=== PATIENT | male | born 1980 | race Caucasian/White ===

== ENCOUNTER 2016-08-28 06:42 | Emergency (ER) | payer BC ==
[2016-08-28] MEDS ORDERED: EPINEPHrine 1:1000 1 MG/ML SDV SUBCUT ONE (07:24)
[2016-08-28] MEDS ORDERED: methylPREDNISolone Sodium Succinate 125 MG/2 ML SDV IVPUSH ONE (07:25)
--- NOTE | 2016-08-28 08:37 | EDM.PDOC ---
ED HPI GENERAL MEDICAL PROBLEM - General Chief Complaint: Respiratory Problem Stated Complaint: SORE THROAT Time Seen by Provider: 08/28/16 07:08 Source of Information: Reports: Patient, RN Notes Reviewed History Limitations: Reports: No Limitations - History of Present Illness INITIAL COMMENTS - FREE TEXT/NARRATIVE: The patient states that he was woken around 06:00 this morning with a sore throat and difficulty swallowing. He states that his sore throat is similar to when he has had strep throat in the past. He denies having a pruritus or a rash. He states that he is allergic to sagebrush, and that he was visiting [place] over the past 3 days, just getting home yesterday, and that while in [place], he was exposed to sagebrush. He also reports, however, that he drank heavily last night. He states that he took 2 rdmn-gml-wkielqy Benadryl tablets around 06:10 this morning, and that it may be beginning to help. He reports that he had a single episode of emesis here in the ED that he believes is secondary to the alcohol that he drank last night. Throat Pain Score (Numeric/FACES): 5 - Related Data Allergies Allergy/AdvReac Type Severity Reaction Status Date / Time No Known Allergies Allergy Verified 04/14/15 01:37 [employer] Home Meds: Home Meds Lisinopril/Hydrochlorothiazide [Lisinopril-Hctz 10-12.5 mg Tab] 1 tab PO DAILY 04/14/15 [History] Omeprazole 40 mg PO DAILY 04/14/15 [History] atorvaSTATin Calcium [Atorvastatin Calcium] 40 mg PO DAILY 04/14/15 [History] Allopurinol [Zyloprim] 300 mg PO DAILY 08/28/16 [History] Past Medical History HEENT History: Reports: Allergic Rhinitis Cardiovascular History: Reports: High Cholesterol, Hypertension Respiratory History: Reports: Sleep Apnea (diagnosed, but untreated) Gastrointestinal History: Reports: GERD Musculoskeletal History: Reports: Fracture, Gout (Suspected, not confirmed) Psychiatric History: Reports: Anxiety, PTSD Endocrine/Metabolic History: Reports: Obesity/BMI 30+ - Infectious Disease History Infectious Disease History: Reports: Chicken Pox - Past Surgical History Musculoskeletal Surgical History: Reports: Other (See Below) (Right ankle repair. 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) ED ROS GENERAL - Review of Systems Review Of Systems: See Below Constitutional: Reports: No Symptoms HEENT: Reports: No Symptoms Respiratory: Reports: No Symptoms Cardiovascular: Reports: No Symptoms Endocrine: Reports: No Symptoms GI/Abdominal: Reports: No Symptoms : Reports: No Symptoms Musculoskeletal: Reports: No Symptoms Skin: Reports: No Symptoms Neurological: Reports: No Symptoms Psychiatric: Reports: No Symptoms Hematologic/Lymphatic: Reports: No Symptoms Immunologic: Reports: No Symptoms ED EXAM, GENERAL - Physical Exam Exam: See Below Exam Limited By: No Limitations General Appearance: Alert, WD/WN, No Apparent Distress Eye Exam: Bilateral Eye: Normal Inspection Ears: Normal External Exam, Normal Canal, Hearing Grossly Normal, Normal TMs Ear Exam: Bilateral Ear: Auricle Normal, Canal Normal, TM normal Nose: Normal Inspection, Normal Mucosa, No Blood Throat/Mouth: Normal Inspection, Normal Lips, Normal Teeth, Normal Gums, Normal Voice, No Airway Compromise, Other (Significant uvular edema. Tonsils normal. No oropharyngeal erythema. Mallampati class IV.) Head: Atraumatic, Normocephalic Neck: Normal Inspection, Supple, Non-Tender, Full Range of Motion. No: Lymphadenopathy (L), Lymphadenopathy (R) Respiratory/Chest: No Respiratory Distress, Lungs Clear, Normal Breath Sounds, No Accessory Muscle Use. No: Wheezing Cardiovascular: Normal Peripheral Pulses, Regular Rate, Rhythm, No Gallop, No JVD, No Murmur, No Rub Peripheral Pulses: 4+: Radial (L), Radial (R) GI/Abdominal: Normal Bowel Sounds, Soft, Non-Tender, No Organomegaly, No Distention, No Abnormal Bruit, No Mass, Other (Obese) (Male) Exam: Deferred Rectal (Males) Exam: Deferred Back Exam: Normal Inspection, Full Range of Motion, NT Extremities: Normal Inspection, Normal Range of Motion, Normal Capillary Refill Neurological: Alert, Oriented, Normal Cognition, No Motor/Sensory Deficits Psychiatric: Normal Affect Skin Exam: Warm, Dry, Intact, Normal Color, No Rash Course - Vital Signs Last Recorded V/S: Last Vital Signs Temp 37.3 C 08/28/16 06:49 Pulse 103 H 08/28/16 09:42 Resp 18 08/28/16 09:42 BP 137/97 H 08/28/16 09:42 Pulse Ox 99 08/28/16 09:42 - Orders/Labs/Meds Orders: Active Orders 24 hr Category Date Time Status CULTURE STREP A CONFIRMATION [] Stat Lab 08/28/16 07:18 Results STREP SCRN A RAPID W CULT CONF [RM] Stat Lab 08/28/16 07:18 Results Meds: Medications Discontinued Medications Generic Name Dose Route Start Last Admin Trade Name Vishal PRN Reason Stop Dose Admin Epinephrine HCl 0.3 mg 08/28/16 07:24 08/28/16 07:37 Adrenalin 1:1000 SUBCUT 08/28/16 07:25 0.3 mg ONETIME ONE Administration Methylprednisolone Sodium Succinate 125 mg 08/28/16 07:25 08/28/16 07:37 Solu-Medrol IVPUSH 08/28/16 07:26 125 mg ONETIME ONE Administration - Re-Assessments/Exams Free Text/Narrative Re-Assessment/Exam: 08/28/16 08:36 As uvular swelling is the only manifestation that the patient is experiencing ( no angioedema, urticaria, or pruritus), I suspect that this is NOT an allergic reaction, rather, given his known history of obstructive sleep apnea, untreated , I suspect that he has undiagnosed obstructive sleep apnea and was snoring last night secondary to excess alcohol intoxication, and that the elevated posterior oropharyngeal pressures caused the uvular swelling. The patient states that he has a CPAP machine, but that he does not use it. The patient was reexamined. There is slight improvement in the uvular edema following sucking on ice chips, subcutaneous epinephrine and IV Solu-Medrol. I' m recommending that we continue to observe the patient in the ED to confirm reduction and uvular swelling prior to discharge. 08/28/16 09:47 The patient was reexamined. There is significant improvement in his uvular edema. I believe we can safely discharge him home. I discussed the consequences of untreated obstructive sleep apnea, and I am recommending that he start using his CPAP machine. Departure - Departure Time of Disposition: 09:49 Disposition: Home, Self-Care 01 Condition: Good Clinical Impression: Uvular edema, Obstructive sleep apnea - Discharge Information Referrals: Luciana Knight DO [Primary Care Provider] - Forms: ED Department Discharge Additional Instructions: You were seen in the emergency room for swelling in your throat, and a sore throat. Workup in the ER included a strep test, which returned negative. On examination, we found that your uvula was significantly swollen, but no other findings consistent with an allergic reaction, such as swelling of your lips or face. It is MOST LIKELY that your uvular swelling is the result of snoring after excessive drinking last night and not using your CPAP machine for your obstructive sleep apnea. Your uvular swelling improved during your ER visit. We STRONGLY recommend that you begin using your CPAP machine nightly. There are numerous complications if you do not treat your obstructive sleep apnea. Follow-up with your PCP at the [facility], as needed. If any other problems, please do not hesitate to return to the ER. - My Orders Last 24 Hours: My Active Orders 08/28/16 07:18 CULTURE STREP A CONFIRMATION [RM] Stat STREP SCRN A RAPID W CULT CONF [RM] Stat - Assessment/Plan Last 24 Hours: My Active Orders 08/28/16 07:18 CULTURE STREP A CONFIRMATION [RM] Stat STREP SCRN A RAPID W CULT CONF [RM] Stat
[2016-08-28 09:43] VITALS: BP 137/97
== END 2016-08-28 10:00 | disposition home or self-care (01) ==
LOC: JD.ED 06:42
DX: G47.33 Obstructive sleep apnea (adult) (pediatric) (principal); R60.9 Edema, unspecified; I10 Essential (primary) hypertension; E78.00 Pure hypercholesterolemia, unspecified; F41.9 Anxiety disorder, unspecified; K21.9 Gastro-esophageal reflux disease without esophagitis; E66.9 Obesity, unspecified; Z68.42 Body mass index [BMI] 45.0-49.9, adult; Z79.899 Other long term (current) drug therapy; Z98.890 Other specified postprocedural states
CPT/HCPCS: 87081; 87430; 96372; 96374; 99283; J0171; J2930; 99284

== ENCOUNTER 2017-05-10 22:03 | Emergency (ER) | payer BC ==
[2017-05-10 22:13] VITALS: BP 162/98
--- NOTE | 2017-05-10 22:18 | EDM.PDOC ---
ED HPI GENERAL MEDICAL PROBLEM - General Chief Complaint: Chest Pain Stated Complaint: chest pain Time Seen by Provider: 05/10/17 22:09 Source of Information: Reports: Patient History Limitations: Reports: No Limitations - History of Present Illness INITIAL COMMENTS - FREE TEXT/NARRATIVE: The patient states that he developed a "bubbly, fuzzy" sensation retrosternally around 20:30 tonight. The sensation was continuous, but changed to a tightness and sharp pain with deep breaths around 21:50. The pain radiated to his back. He has not identified any modifiers. It was associated with a sense of impending doom, and he had nausea en route to the ED, but denies having any dyspnea or diaphoresis. The patient states that he has had similar symptoms doesn't's of times since approximately 2006. He has had medical evaluations that included a stress test, all of which were negative. The patient states that his symptoms are the same as when he has GERD, however, he states that he takes omeprazole for GERD, therefore he does not think that it is GERD. He states that he has been walking to lose weight, recently. The patient's PCP is Dr. Knight at the [facility]. Chest Pain Score (Numeric/FACES): 4 - Related Data Allergies Allergy/AdvReac Type Severity Reaction Status Date / Time Penicillins Allergy Rash Verified 05/10/17 22:08 Home Meds: Home Meds Allopurinol [Zyloprim] 300 mg PO DAILY 08/28/16 [History] Cetirizine [ZyrTEC] 10 mg PO DAILY 05/10/17 [History] Fluticasone Propionate [Flonase] 2 spray NASBOTH DAILY 05/10/17 [History] Pantoprazole Sodium [Protonix] 1 tab PO QAM #14 tablet. 05/11/17 [Rx] Past Medical History HEENT History: Reports: Allergic Rhinitis Cardiovascular History: Reports: High Cholesterol, Hypertension Respiratory History: Reports: Sleep Apnea (untreated) Gastrointestinal History: Reports: GERD Musculoskeletal History: Reports: Fracture, Gout (suspected, not diagnosed) Psychiatric History: Reports: Anxiety, PTSD Endocrine/Metabolic History: Reports: Obesity/BMI 30+ - Infectious Disease History Infectious Disease History: Reports: Chicken Pox - Past Surgical History Musculoskeletal Surgical History: Reports: Other (See Below) (Right ankle repair. 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 ED EXAM, GENERAL - Physical Exam Exam: See Below Exam Limited By: No Limitations General Appearance: Alert, WD/WN, No Apparent Distress Eye Exam: Bilateral Eye: Normal Inspection Ears: Normal External Exam, Hearing Grossly Normal Nose: Normal Inspection, No Blood Throat/Mouth: Normal Inspection, Normal Lips, Normal Voice, No Airway Compromise Head: Atraumatic, Normocephalic Neck: Normal Inspection, Full Range of Motion Respiratory/Chest: No Respiratory Distress, Lungs Clear, Normal Breath Sounds, No Accessory Muscle Use, Chest Non-Tender Cardiovascular: Normal Peripheral Pulses, Regular Rate, Rhythm, No Gallop, No JVD, No Murmur, No Rub Peripheral Pulses: 4+: Radial (L), Radial (R) GI/Abdominal: Normal Bowel Sounds, Soft, Non-Tender, No Organomegaly, No Distention, No Abnormal Bruit, No Mass, Other (Obese) (Male) Exam: Deferred Rectal (Males) Exam: Deferred Back Exam: Normal Inspection, Full Range of Motion, NT Extremities: Normal Range of Motion, No Pedal Edema, Normal Capillary Refill, Other (Small effusion to the left knee, but with no associated erythema or calor ) Neurological: Alert, Oriented, Normal Cognition, No Motor/Sensory Deficits Psychiatric: Normal Affect Skin Exam: Warm, Dry, Intact, Normal Color, No Rash EKG INTERPRETATION EKG Date: 05/10/17 Time: 22:13 Rhythm: NSR Rate (Beats/Min): 82 [place]: Normal P-Wave: Present QRS: Normal ST-T: Normal QT: Normal Comparison: NA - No Prior EKG Course - Vital Signs Last Recorded V/S: Last Vital Signs Temp 36.7 C 05/10/17 22:10 Pulse 90 05/10/17 22:10 Resp BP 162/98 H 05/10/17 22:10 Pulse Ox 98 05/10/17 22:10 - Orders/Labs/Meds Orders: Active Orders 24 hr Category Date Time Status Chest 2V [CR] Stat Exams 05/10/17 22:28 Taken EKG 12 Lead [EK] Stat Ther 05/10/17 22:10 Ordered Labs: Laboratory Tests 05/10/17 05/10/17 05/10/17 Range/Units 22:45 22:45 22:45 WBC 13.37 H (4.23-9.07) K/mm3 RBC 4.96 (4.63-6.08) M/mm3 Hgb 15.8 (13.7-17.5) gm/L Hct 46.0 (40.1-51.0) % MCV 92.7 H (79.0-92.2) fl MCH 31.9 (25.7-32.2) pg MCHC 34.3 (32.2-35.5) g/dl RDW Std Deviation 48.4 H (35.1-43.9) fL Plt Count 257 (163-337) K/mm3 MPV 9.3 L (9.4-12.3) fl Neutrophils % (Manual) 65 H (40-60) % Band Neutrophils % 0 (0-10) % Lymphocytes % (Manual) 23 (20-40) % Atypical Lymphs % 2 % Monocytes % (Manual) 6 (2-10) % Eosinophils % (Manual) 1 (0.8-7.0) % Basophils % (Manual) 0 L (0.2-1.2) Metamyelocytes % 1 Myelocytes % 1 Promyelocytes % 1 Platelet Estimate Adequate Plt Morphology Comment Normal RBC Morph Comment Normal PT 10.5 (8.0-13.0) SECONDS INR 0.98 APTT 25 (22-36) SECONDS D-Dimer, Quantitative < 0.19 L (0.19-0.59) mg/L Sodium 140 (136-145) mEq/L Potassium 4.0 (3.5-5.1) mEq/L Chloride 102 (98-107) mEq/L Carbon Dioxide 23 (21-32) mEq/L Anion Gap 19.0 H (5-15) BUN 18 (7-18) mg/dL Creatinine 1.2 (0.7-1.3) mg/dL Est Cr Clr Drug Dosing 84.28 mL/min Estimated GFR (MDRD) > 60 (>60) mL/min BUN/Creatinine Ratio 15.0 (14-18) Glucose 116 H (74-106) mg/dL Calcium 9.2 (8.5-10.1) mg/dL Total Bilirubin 0.4 (0.2-1.0) mg/dL AST 30 (15-37) U/L ALT 61 (16-63) U/L Alkaline Phosphatase 42 L (46-116) U/L Troponin I < 0.017 (0.00-0.056) ng/mL Total Protein 7.5 (6.4-8.2) g/dl Albumin 3.6 (3.4-5.0) g/dl Globulin 3.9 gm/dL Albumin/Globulin Ratio 0.9 L (1-2) Meds: Medications Discontinued Medications Generic Name Dose Route Start Last Admin Trade Name Freq PRN Reason Stop Dose Admin Al Hydroxide/Mg Hydroxide 30 0 ml 05/10/17 22:28 05/10/17 22:35 ml/ Lidocaine HCl 15 ml PO 05/10/17 22:29 45 ml ONETIME STA Administration Pantoprazole Sodium 40 mg 05/10/17 23:53 05/11/17 00:02 Protonix PO 05/10/17 23:54 40 mg ONETIME STA Administration - Re-Assessments/Exams Free Text/Narrative Re-Assessment/Exam: 05/10/17 23:02 The patient reports significant improvement in his chest pain following a GI cocktail. 05/10/17 23:16 Two-view chest radiograph appears to be grossly normal. Cardiac silhouette is within normal limits. No pulmonary vascular congestion. No pleural effusions. No focal infiltrate. No pneumothorax. Formal read per the Radiologist pending. 05/11/17 00:03 The patient asked me to look at his left knee. He states that he has been having some pain in it for a few days, and that it is all swollen. On examination, there is a small effusion, but no associated warmth or erythema. He has no inflammation or pain to his great toes. He has a presumptive diagnosis of gout, but has never been formally tested. I'm recommending that he take uqev-pyi-pmgerch ibuprofen, then follow-up with Dr. Cabezas, who could aspirate the knee for a formal diagnosis. With respect to the patient's chest pain, tonight's workup is unremarkable. The patient is likely suffering from GERD. The omeprazole that he has been taking his likely stopped working. I have started the patient on oral Protonix, and will prescribe a 2 week course. I will also refer the patient to Dr. Jaimes, to arrange for an EGD. Departure - Departure Time of Disposition: 00:05 Disposition: Home, Self-Care 01 Condition: Good Clinical Impression: GERD (gastroesophageal reflux disease), Monoarthritis of left knee - Discharge Information Prescriptions: Pantoprazole Sodium [Protonix] 1 tab PO QAM #14 tablet.dr Instructions: Food Choices for Gastroesophageal Reflux Disease, Adult, Easy-to- Read, Arthritis, [id number] Referrals: Luciana Knight DO [Primary Care Provider] - Monty Jaimes MD [Physician] - Seth Cabezas MD [Physician] - Forms: ED Department Discharge Additional Instructions: You were seen in the emergency room for chest pain and left knee pain. Workup in the ER included blood work, an ECG, and a chest x-ray. Your entire workup was unremarkable. You have not suffered a heart attack. You do not have a blood clot in your chest. You do not have a popped lung. Your chest pain resolved following a GI cocktail, indicating that your chest pain is due to GERD. It is MOST LIKELY that the omeprazole that you have been taking has stopped working. You have been started on the antacid medicine Protonix. Take one tablet every day, as prescribed. We recommend that you follow-up with the Surgeon Dr. Monty Jaimes, to arrange for an EGD (scope of the stomach). Your left knee pain may or may not be due to gout. We recommend that you take aazi-ijj-acncftt ibuprofen, 2-3 tablets (400-600 mg) , with food, every 8 hours, as needed for knee pain. We recommend that you follow-up with the Orthopedic Surgeon Dr. Cabezas within the next day or two, for further evaluation of your knee. If any other problems, please do not hesitate to return to the ER. - My Orders Last 24 Hours: My Active Orders 05/10/17 22:10 EKG 12 Lead [EK] Stat 05/10/17 22:28 Chest 2V [CR] Stat - Assessment/Plan Last 24 Hours: My Active Orders 05/10/17 22:10 EKG 12 Lead [EK] Stat 05/10/17 22:28 Chest 2V [CR] Stat
[2017-05-10] MEDS ORDERED: Alum Hydrox/Mag Hydrox/Simeth 30 ML, Lidocaine 2% 15 ML PO STA ×2 (22:28)
[2017-05-10] MEDS ORDERED: Pantoprazole 40 MG Tab.CR PO STA (23:53)
--- NOTE | 2017-05-11 07:05 | CR ---
Chest: Two views of the chest were obtained. Comparison: No prior study. Heart size and mediastinum are normal. Lungs are clear. Bony structures are unremarkable. Impression: 1. Nothing acute is identified on two-view chest x-ray. Diagnostic code #1
== END 2017-05-11 00:25 | disposition home or self-care (01) ==
LOC: JD.ED 22:03
DX: K21.9 Gastro-esophageal reflux disease without esophagitis (principal); M17.12 Unilateral primary osteoarthritis, left knee; I10 Essential (primary) hypertension; E66.9 Obesity, unspecified; Z88.0 Allergy status to penicillin; Z79.899 Other long term (current) drug therapy
CPT/HCPCS: 36415; 71046; 80053; 84484; 85025; 85379; 85610; 85730; 99285; A9270; 93010; 99284-25

== ENCOUNTER 2017-08-25 23:51 | Emergency (ER) | payer BC ==
[2017-08-26 00:06] VITALS: BP 148/93
[2017-08-26] MEDS ORDERED: Orphenadrine 100 MG Tab.ER PO STA (01:28)
--- NOTE | 2017-08-26 01:34 | EDM.PDOC ---
ED HPI GENERAL MEDICAL PROBLEM - General Chief Complaint: General Stated Complaint: LEFT SIDE PAIN Time Seen by Provider: 08/26/17 01:17 Source of Information: Reports: Patient History Limitations: Reports: No Limitations - History of Present Illness INITIAL COMMENTS - FREE TEXT/NARRATIVE: The patient states that he was golfing around 14:00 this afternoon, and swung very hard when teeing off. He states that he had immediate pain to the inferior aspect of his left ribs. He was unable to continue golfing, due to the pain. He states that the pain is only if he moves, and was improving, until he sneezed, which significantly increased the pain, prompting him to come to the ED. He states that he has had nausea associated with the pain, although no emesis. He denies associated dyspnea, chest pain, palpitations, or abdominal pain. No prior similar symptoms. The patient's PCP is Dr. Knight at the [place]. Left Flank Pain Score (Numeric/FACES): 8 - Related Data Allergies Allergy/AdvReac Type Severity Reaction Status Date / Time Penicillins Allergy Rash Verified 08/26/17 00:06 Home Meds: Home Meds Allopurinol [Zyloprim] 300 mg PO DAILY 08/28/16 [History] Cetirizine [ZyrTEC] 10 mg PO DAILY 05/10/17 [History] Fluticasone Propionate [Flonase] 2 spray NASBOTH DAILY 05/10/17 [History] Pantoprazole Sodium [Protonix] 1 tab PO QAM #14 tablet. 05/11/17 [Rx] Lisinopril/Hydrochlorothiazide [Lisinopril-Hctz 10-12.5 mg Tab] 10 mg PO DAILY 08/26/17 [History] Orphenadrine [Norflex] 1 tab PO Q12H PRN #14 tab.er 08/26/17 [Rx] Past Medical History HEENT History: Reports: Allergic Rhinitis Cardiovascular History: Reports: High Cholesterol, Hypertension Respiratory History: Reports: Sleep Apnea (nightly CPAP, auto setting) Gastrointestinal History: Reports: GERD Musculoskeletal History: Reports: Fracture (2 fingers), Gout (aspiration- confirmed) Psychiatric History: Reports: Anxiety, PTSD Endocrine/Metabolic History: Reports: Obesity/BMI 30+ - Infectious Disease History Infectious Disease History: Reports: Chicken Pox - Past Surgical History Musculoskeletal Surgical History: Reports: Other (See Below) (Left wrist repair. 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 ED EXAM, GENERAL - Physical Exam Exam: See Below Exam Limited By: No Limitations General Appearance: Alert, WD/WN, No Apparent Distress GI/Abdominal: Normal Bowel Sounds, Soft, No Abnormal Bruit, No Mass, Other ( Obese abdomen. Reproducible tenderness to palpation to the inferior margin of the left ribs, midaxillary line. No visible abnormality, such as erythema, ecchymosis, or abrasion. No rub on auscultation.) Course - Vital Signs Last Recorded V/S: Last Vital Signs Temp 37.2 C 08/26/17 00:02 Pulse 110 H 08/26/17 00:02 Resp 20 08/26/17 00:02 BP 148/93 H 08/26/17 00:02 Pulse Ox 99 08/26/17 00:02 - Orders/Labs/Meds Labs: Laboratory Tests 08/26/17 Range/Units 00:19 Urine Color Yellow (Yellow) Urine Appearance Clear (Clear) Urine pH 6.0 (5.0-8.0) Ur Specific [place] > or = 1.030 (1.005-1.030) Urine Protein Negative (Negative) Urine Glucose (UA) Negative (Negative) Urine Ketones Trace H (Negative) Urine Occult Blood Negative (Negative) Urine Nitrite Negative (Negative) Urine Bilirubin Negative (Negative) Urine Urobilinogen 0.2 (0.2-1.0) Ur Leukocyte Esterase Negative (Negative) Urine RBC 0-5 (0-5) /hpf Urine WBC Not seen (0-5) /hpf Ur Epithelial Cells Not seen (0-5) /hpf Ur Squamous Epith Cells Not seen (0-5) /hpf Urine Bacteria Not seen (FEW) /hpf Urine Mucus Not seen (FEW) /hpf Meds: Medications Discontinued Medications Generic Name Dose Route Start Last Admin Trade Name Vishal PRN Reason Stop Dose Admin Orphenadrine Citrate 100 mg 08/26/17 01:28 08/26/17 01:46 Norflex PO 08/26/17 01:29 100 mg ONETIME STA Administration - Re-Assessments/Exams Free Text/Narrative Re-Assessment/Exam: 08/26/17 01:30 A urinalysis is negative for microscopic blood, significantly reducing the likelihood that the patient's pain is due to a kidney stone. Additionally, the patient's pain is reproducible with palpation, and is only present whenever he moves. Based on his history and physical findings, he is most likely suffering from a muscle spasm. I will start him on Norflex, and recommend that he continue taking qmqg-[id number]-[id number] ibuprofen. Departure - Departure Time of Disposition: 01:31 Disposition: Home, Self-Care 01 Condition: Good Clinical Impression: Spasm of abdominal muscles of left side - Discharge Information Prescriptions: Orphenadrine [Norflex] 1 tab PO Q12H PRN #14 tab.er PRN Reason: Muscle Spasm Instructions: Muscle Cramps and Spasms Referrals: Luciana Knight DO [Primary Care Provider] - Forms: ED Department Discharge Additional Instructions: You were seen in the emergency room for severe left-sided pain after swinging a golf club hard this afternoon. Workup in the ER included a urinalysis, which was negative for blood, significantly reducing the likelihood that your symptoms are due to a kidney stone. Based on your history and physical examination, you are MOST LIKELY suffering from a muscle spasm. You have been started on the muscle relaxant Norflex. A prescription for Norflex has been sent to the [facility], located in the [facility] grocery store. Take one tablet every 12 hours, as prescribed. We recommend that you continue to take nxvc-lvs-kotctnl ibuprofen, 3-4 tablets ( 600-800 mg) every 8 hours, with food, as needed for pain. If your symptoms have not improved by next week, we recommend that you follow- up with your PCP, Dr. Knight, at the [place]. If any other problems, please do not hesitate to return to the ER.
== END 2017-08-26 01:48 | disposition home or self-care (01) ==
LOC: JD.ED 23:51
DX: M62.838 Other muscle spasm (principal); I10 Essential (primary) hypertension; E78.00 Pure hypercholesterolemia, unspecified; F41.9 Anxiety disorder, unspecified; Z79.899 Other long term (current) drug therapy; Z88.0 Allergy status to penicillin
CPT/HCPCS: 81001; 99284; A9270; 99283

== ENCOUNTER 2017-11-22 22:50 | Emergency (ER) | payer BC ==
[2017-11-22 23:01] VITALS: BP 164/97
--- NOTE | 2017-11-23 03:39 | EDM.PDOC ---
ED HPI GENERAL MEDICAL PROBLEM - General Chief Complaint: Chest Pain Stated Complaint: CHEST PAIN Time Seen by Provider: 11/23/17 03:17 Source of Information: Reports: Patient, RN Notes Reviewed History Limitations: Reports: No Limitations - History of Present Illness INITIAL COMMENTS - FREE TEXT/NARRATIVE: The patient states that he developed a sharp pain, felt just left of his sternum , around 22:30 this evening. It came on suddenly. He states that it radiates straight through to his left back. The patient reports that his pain has persisted, and is still present now. He denies any associated symptoms, such as nausea, dyspnea, diaphoresis, or sense of impending doom, however, he states that he is very anxious. The patient reports that his anxiety was previously treated with Ativan, but that it was discontinued 1.5 to 2 years ago, and not replaced with a long-term anxiolytic. The patient states that he has had recurrent chest pain for the past 6-8 months , but that it is different than his presenting pain. The patient's PCP is at the [facility]. Chest Pain Score (Numeric/FACES): 6 - Related Data Allergies Allergy/AdvReac Type Severity Reaction Status Date / Time Penicillins Allergy Rash Verified 11/22/17 23:02 Home Meds: Home Meds Allopurinol [Zyloprim] 300 mg PO DAILY 08/28/16 [History] Cetirizine [ZyrTEC] 10 mg PO DAILY 05/10/17 [History] Fluticasone Propionate [Flonase] 2 spray NASBOTH DAILY 05/10/17 [History] Pantoprazole Sodium [Protonix] 1 tab PO QAM #14 tablet. 05/11/17 [Rx] Lisinopril/Hydrochlorothiazide [Lisinopril-Hctz 10-12.5 mg Tab] 10 mg PO DAILY 08/26/17 [History] Orphenadrine [Norflex] 1 tab PO Q12H PRN #14 tab.er 08/26/17 [Rx] Past Medical History HEENT History: Reports: Allergic Rhinitis Cardiovascular History: Reports: High Cholesterol, Hypertension Respiratory History: Reports: Sleep Apnea (wears AutoPAP nightly) Gastrointestinal History: Reports: GERD Musculoskeletal History: Reports: Fracture (2 fingers), Gout (confirmed by aspiration) Psychiatric History: Reports: Anxiety (untreated), PTSD (untreated) Endocrine/Metabolic History: Reports: Obesity/BMI 30+ - Infectious Disease History Infectious Disease History: Reports: Chicken Pox - Past Surgical History Musculoskeletal Surgical History: Reports: Other (See Below) (Left wrist repair. 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 ED EXAM, GENERAL - Physical Exam Exam: See Below Exam Limited By: No Limitations General Appearance: Alert, WD/WN, No Apparent Distress Eye Exam: Bilateral Eye: EOMI, Normal Inspection Ears: Normal External Exam, Hearing Grossly Normal Nose: Normal Inspection Throat/Mouth: Normal Inspection, Normal Lips, Normal Teeth, Normal Gums, Normal Oropharynx, Normal Voice, No Airway Compromise Head: Atraumatic, Normocephalic Neck: Normal Inspection, Full Range of Motion Respiratory/Chest: No Respiratory Distress, Lungs Clear, Normal Breath Sounds, No Accessory Muscle Use, Other (Reproducible tenderness to palpation of the medial left pectoralis muscle. Pain is also reproduced when the patient contracts his pectoralis muscles against resistance, or if he crosses his left upper extremity across his chest.) Cardiovascular: Normal Peripheral Pulses, Regular Rate, Rhythm, No Gallop, No JVD, No Murmur, No Rub Peripheral Pulses: 4+: Radial (L), Radial (R) GI/Abdominal: Normal Bowel Sounds, Soft, Non-Tender, No Organomegaly, No Distention, No Abnormal Bruit, No Mass, Other (Obese) (Male) Exam: Deferred Rectal (Males) Exam: Deferred Back Exam: Normal Inspection, Full Range of Motion, Other (Reproducible tenderness to palpation along the medial aspect of the patient's left scapula). No: CVA Tenderness (L), CVA Tenderness (R) Extremities: Normal Inspection, Normal Range of Motion, No Pedal Edema, Normal Capillary Refill Neurological: Alert, Oriented, Normal Cognition, No Motor/Sensory Deficits Psychiatric: Normal Affect Skin Exam: Warm, Dry, Intact, Normal Color, No Rash EKG INTERPRETATION EKG Date: 11/23/17 Time: 12:20 Rhythm: NSR Rate (Beats/Min): 85 [place]: Normal P-Wave: Present QRS: Normal ST-T: Normal (No ischemic changes, but there is late transition, not seen on ECG 05/10/2017) QT: Normal Comparison: Change From Previous EKG (05/10/2017) Course - Vital Signs Last Recorded V/S: Last Vital Signs Temp 36.6 C 11/22/17 22:57 Pulse 88 11/22/17 22:57 Resp 31 H 11/22/17 22:57 BP 164/97 H 11/22/17 22:57 Pulse Ox 98 11/22/17 22:57 - Orders/Labs/Meds Labs: Laboratory Tests 11/22/17 11/22/17 Range/Units 23:20 23:20 WBC 8.97 (4.23-9.07) K/mm3 RBC 4.67 (4.63-6.08) M/mm3 Hgb 15.0 (13.7-17.5) gm/L Hct 42.9 (40.1-51.0) % MCV 91.9 (79.0-92.2) fl MCH 32.1 (25.7-32.2) pg MCHC 35.0 (32.2-35.5) g/dl RDW Std Deviation 45.7 H (35.1-43.9) fL Plt Count 254 (163-337) K/mm3 MPV 9.6 (9.4-12.3) fl Neut % (Auto) 58.6 (34.0-67.9) % Lymph % (Auto) 28.3 (21.8-53.1) % [place] % (Auto) 10.3 (5.3-12.2) % Eos % (Auto) 1.9 (0.8-7.0) Baso % (Auto) 0.2 (0.1-1.2) % Neut # (Auto) 5.26 (1.78-5.38) K/mm3 Lymph # (Auto) 2.54 (1.32-3.57) K/mm3 [place] # (Auto) 0.92 H (0.30-0.82) K/mm3 Eos # (Auto) 0.17 (0.04-0.54) K/mm3 Baso # (Auto) 0.02 (0.01-0.08) K/mm3 Sodium 139 (136-145) mEq/L Potassium 3.7 (3.5-5.1) mEq/L Chloride 103 (98-107) mEq/L Carbon Dioxide 23 (21-32) mEq/L Anion Gap 16.7 H (5-15) BUN 16 (7-18) mg/dL Creatinine 1.1 (0.7-1.3) mg/dL Est Cr Clr Drug Dosing 88.09 mL/min Estimated GFR (MDRD) > 60 (>60) mL/min BUN/Creatinine Ratio 14.5 (14-18) Glucose 239 H (74-106) mg/dL Calcium 9.1 (8.5-10.1) mg/dL Total Bilirubin 0.3 (0.2-1.0) mg/dL AST (15-37) U/L ALT 83 H (16-63) U/L Alkaline Phosphatase 51 (46-116) U/L Troponin I < 0.017 (0.00-0.056) ng/mL C-Reactive Protein 1.0 (<1.0) mg/dL Total Protein 7.3 (6.4-8.2) g/dl Albumin 3.5 (3.4-5.0) g/dl Globulin 3.8 gm/dL Albumin/Globulin Ratio 0.9 L (1-2) - Re-Assessments/Exams Free Text/Narrative Re-Assessment/Exam: 11/23/17 03:38 The patient's left anterior chest pain is discrete and reproducible with both palpation as well as flexion of his left pectoralis muscle. His left scapular pain is reproducible with palpation over a discrete area. Both of these are consistent with the patient's pain being due to a muscle spasm, however, I want to be certain that it is not due to a pneumothorax, therefore I have ordered a chest x-ray. 11/23/17 04:23 2-view chest radiograph appears to be grossly normal. Cardiac silhouette is within normal limits. No pulmonary vascular congestion. No pleural effusions. No focal infiltrate. No pneumothorax. Formal read per the Radiologist pending. 11/23/17 04:26 Test results discussed with the patient. As above, the patient's chest pain appears to be due to muscle spasms, possibly related to his untreated anxiety. We discussed the option of prescribing a muscle relaxant, but he elected against it. The patient states that he is getting the run-around at the [facility], and that they changed physicians on him. I had recommended that he have an EGD to evaluate his acid reflux months ago, and he states that he still hasn't had it. The patient had previously been on lorazepam for anxiety, which was discontinued about 2 years ago, and not replaced with an SSRI. He has regular insurance, however, and therefore agreed to be referred to a PCP at this facility who may be able to expedite his evaluation. I will refer him to Lacie Walton. Departure - Departure Time of Disposition: 04:28 Disposition: Home, Self-Care 01 Condition: Good Clinical Impression: Musculoskeletal chest pain - Discharge Information *PRESCRIPTION DRUG MONITORING PROGRAM REVIEWED*: Not Applicable *COPY OF PRESCRIPTION DRUG MONITORING REPORT IN PATIENT BRADLEY: Not Applicable Instructions: Nonspecific Chest Pain, [id number] Referrals: PCP,Mable [Primary Care Provider] - Lacie Walton PA [Physician Wool Sampler] - Forms: ED Department Discharge Additional Instructions: You were seen in the emergency room for sharp front and back chest pain. Workup in the ER included blood work, chest x-ray, and an ECG. Your entire workup was unremarkable. Based on your history, physical examination, and workup, your chest pain is MOST LIKELY due to muscle spasms, possibly related to your untreated anxiety. Follow-up with Fahad Walton as a primary care provider. She can arrange for you to get an EGD, and you can discuss treatment options for anxiety. If any other problems, please do not hesitate to return to the ER.
--- NOTE | 2017-11-23 07:45 | CR ---
Chest: Two views of the chest were obtained. Comparison: Prior chest x-ray of 05/10/17. Heart size and mediastinum are normal. Lung markings are slightly increased believed to be accentuated from patient body habitus. Lungs are felt to be clear. No acute parenchymal change is suspected. Bony structures are unremarkable. Impression: 1. Nothing acute is seen on two-view chest x-ray. Diagnostic code #2
== END 2017-11-23 04:40 | disposition home or self-care (01) ==
LOC: JD.ED 22:50
DX: R07.89 Other chest pain (principal); I10 Essential (primary) hypertension; E78.00 Pure hypercholesterolemia, unspecified; F41.9 Anxiety disorder, unspecified; Z79.899 Other long term (current) drug therapy; Z88.0 Allergy status to penicillin
CPT/HCPCS: 36415; 71046; 71046-26; 80053; 84484; 85025; 86140; 93005; 93010; 99284-25; 99285-25

== ENCOUNTER 2018-11-13 08:53 | Emergency (ER) | payer OTHER, BC ==
[2018-11-13 09:05] VITALS: BP 158/98
[2018-11-13] MEDS ORDERED: Sodium Chloride 0.9% 10 ML Syringe FLUSH PRN (09:32)
--- NOTE | 2018-11-13 09:47 | EDM.PDOC ---
ED HPI GENERAL MEDICAL PROBLEM - General Chief Complaint: Abdominal Pain Stated Complaint: LEFT SIDE STOMACH PAIN Time Seen by Provider: 11/13/18 09:23 Source of Information: Reports: Patient History Limitations: Reports: No Limitations - History of Present Illness INITIAL COMMENTS - FREE TEXT/NARRATIVE: The patient presents with left sided abdominal and flank pain. This started yesterday but became more intense today. He said he did urinate and that did relieve some of his pain. He has no history of kidney stones. He has no dysuria or hematuria. He has no chest pain or shortness of breath. He had some nausea this morning and that is gone. He still has his gallbladder and appendix. Onset: Gradual Duration: Day(s): (Yesterday) Location: Reports: Abdomen Quality: Reports: Sharp Severity: Moderate Improves with: Reports: None Worsens with: Reports: None Associated Symptoms: Reports: Nausea/Vomiting. Denies: Chest Pain, Cough, Fever /Chills, Headaches, Shortness of Breath Left Lower Abdominal Pain Score (Numeric/FACES): 8 - Related Data Allergies Allergy/AdvReac Type Severity Reaction Status Date / Time lisinopril Allergy Cough Verified 11/13/18 09:06 meloxicam Allergy Dizziness Verified 11/13/18 09:06 Penicillins Allergy Rash Verified 11/13/18 09:06 Home Meds: Home Meds Allopurinol [Zyloprim] 300 mg PO DAILY 08/28/16 [History] Cetirizine [ZyrTEC] 10 mg PO DAILY PRN 05/10/17 [History] Cholecalciferol (Vitamin D3) [Vitamin D3] 2,000 unit PO DAILY 01/20/18 [History] Citalopram Hydrobromide [Celexa] 20 mg PO DAILY 01/20/18 [History] LORazepam [Ativan] 0.5 mg PO Q6H PRN 01/20/18 [History] Losartan [Cozaar] 25 mg PO DAILY 01/20/18 [History] Fluticasone Propionate [Flonase Allergy Relief] 1 spray [place] DAILY 11/13/18 [ History] Hydrocodone/Acetaminophen [Hydrocodon-Acetaminophen 5-325] 1 - 2 each PO Q6HR PRN #10 tablet 11/13/18 [Rx] Pantoprazole Sodium [Protonix] 40 mg PO QAM 11/13/18 [History] Past Medical History HEENT History: Reports: Allergic Rhinitis, Impaired Vision Other HEENT History: weras glasses Cardiovascular History: Reports: High Cholesterol, Hypertension Respiratory History: Reports: Sleep Apnea Other Respiratory History: CPAP at night Gastrointestinal History: Reports: GERD, Other (See Below) Other Gastrointestinal History: fatty liver Genitourinary History: Reports: None [employer] 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 Musculoskeletal History: Reports: Back Pain, Chronic, Fracture, Gout, Other ( See Below) Other Musculoskeletal History: back injury, left wrist injury, right ankle injury, right ankle reconstruciton, left wrist reconstruction Neurological History: Reports: Migraines Psychiatric History: Reports: Anxiety, PTSD Endocrine/Metabolic History: Reports: Obesity/BMI 30+, Vitamin D Deficiency Other Endocrine/Metabolic History: low testosterone Hematologic History: Reports: None, Other (See Below) Other Hematologic History: hypocalcemia Immunologic History: Reports: None Oncologic (Cancer) History: Reports: None Dermatologic History: Reports: None - Infectious Disease History Infectious Disease History: Reports: Chicken Pox - Past Surgical History Head Surgeries/Procedures: Reports: None HEENT Surgical History: Reports: None Cardiovascular Surgical History: Reports: None Respiratory Surgical History: Reports: None GI Surgical History: Reports: None Male Surgical History: Reports: None Endocrine Surgical History: Reports: None Neurological Surgical History: Reports: None Musculoskeletal Surgical History: Reports: Other (See Below) Other Musculoskeletal Surgeries/Procedures:: wrist & right ankle surgery Oncologic Surgical History: Reports: None Dermatological Surgical History: Reports: None Social & Family History - Family History Family Medical History: Noncontributory - Tobacco Use Smoking Status *Q: Never Smoker - Caffeine Use Caffeine Use: Reports: Coffee, Soda - Recreational Drug Use Recreational Drug Use: No - Living Situation & Occupation Living situation: Reports: , with Family (2 kids) 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 Denies: Diarrhea, Vomiting : Reports: No Symptoms Musculoskeletal: Reports: Back Pain (Left lower) ED EXAM, GI/ABD - Physical Exam Exam: See Below Exam Limited By: No Limitations General Appearance: Alert, No Apparent Distress Ears: Normal External Exam Nose: Normal Inspection Head: Atraumatic, Normocephalic Neck: Normal Inspection Respiratory/Chest: No Respiratory Distress, Lungs Clear, Normal Breath Sounds Cardiovascular: Regular Rate, Rhythm, No Edema, No Murmur GI/Abdominal Exam: Soft, No Organomegaly, No Mass, Tender (Mild tenderness to the left lower abdomen) Back Exam: Normal Inspection Extremities: Normal Inspection Course - Vital Signs Last Recorded V/S: Last Vital Signs Temp 97.1 F 11/13/18 09:01 Pulse 103 H 11/13/18 09:01 Resp 18 11/13/18 09:01 BP 158/98 H 11/13/18 09:01 Pulse Ox 97 11/13/18 09:01 - Orders/Labs/Meds Orders: Active Orders 24 hr Category Date Time Status Peripheral IV Care [RC] . DIRECTED Care 11/13/18 09:33 Active Sodium Chloride 0.9% [Saline Flush] Med 11/13/18 09:32 Active 10 ml FLUSH ASDIRECTED PRN Peripheral IV Insertion Adult [OM.PC] Stat Oth 11/13/18 09:32 Ordered Medication Orders Sodium Chloride (Saline Flush) 10 ml FLUSH ASDIRECTED PRN PRN Reason: Keep Vein Open Last Admin: 11/13/18 09:36 Dose: 10 ml Labs: Laboratory Tests 11/13/18 11/13/18 11/13/18 Range/Units 09:05 09:05 10:20 WBC 11.26 H (4.23-9.07) K/mm3 RBC 4.98 (4.63-6.08) M/mm3 Hgb 15.9 (13.7-17.5) gm/L Hct 45.9 (40.1-51.0) % MCV 92.2 (79.0-92.2) fl MCH 31.9 (25.7-32.2) pg MCHC 34.6 (32.2-35.5) g/dl RDW Std Deviation 46.9 H (35.1-43.9) fL Plt Count 265 (163-337) K/mm3 MPV 9.5 (9.4-12.3) fl Neut % (Auto) 66.0 (34.0-67.9) % Lymph % (Auto) 21.8 (21.8-53.1) % [place] % (Auto) 10.3 (5.3-12.2) % Eos % (Auto) 1.0 (0.8-7.0) Baso % (Auto) 0.2 (0.1-1.2) % Neut # (Auto) 7.43 H (1.78-5.38) K/mm3 Lymph # (Auto) 2.46 (1.32-3.57) K/mm3 [place] # (Auto) 1.16 H (0.30-0.82) K/mm3 Eos # (Auto) 0.11 (0.04-0.54) K/mm3 Baso # (Auto) 0.02 (0.01-0.08) K/mm3 Manual Slide Review Abnormal smear Sodium 139 (136-145) mEq/L Potassium 4.1 (3.5-5.1) mEq/L Chloride 102 (98-107) mEq/L Carbon Dioxide 22 (21-32) mEq/L Anion Gap 19.1 H (5-15) BUN 17 (7-18) mg/dL Creatinine 0.9 (0.7-1.3) mg/dL Est Cr Clr Drug Dosing 106.61 mL/min Estimated GFR (MDRD) > 60 (>60) mL/min BUN/Creatinine Ratio 18.9 H (14-18) Glucose 128 H (74-106) mg/dL Calcium 9.3 (8.5-10.1) mg/dL Total Bilirubin 0.4 (0.2-1.0) mg/dL AST 27 (15-37) U/L ALT 49 (16-63) U/L Alkaline Phosphatase 46 (46-116) U/L Total Protein 7.9 (6.4-8.2) g/dl Albumin 3.7 (3.4-5.0) g/dl Globulin 4.2 gm/dL Albumin/Globulin Ratio 0.9 L (1-2) Lipase 131 (73-393) U/L Urine Color Yellow (Yellow) Urine Appearance Clear (Clear) Urine pH 5.5 (5.0-8.0) Ur Specific [place] 1.025 (1.005-1.030) Urine Protein Negative (Negative) Urine Glucose (UA) Negative (Negative) Urine Ketones Negative (Negative) Urine Occult Blood Trace-lysed H (Negative) Urine Nitrite Negative (Negative) Urine Bilirubin Negative (Negative) Urine Urobilinogen 0.2 (0.2-1.0) Ur Leukocyte Esterase Negative (Negative) Urine RBC 0-5 (0-5) /hpf Urine WBC 0-5 (0-5) /hpf Ur Epithelial Cells 0-5 (0-5) /hpf Urine Bacteria Not seen (FEW) /hpf Urine Mucus Not seen (FEW) /hpf Meds: Medications Generic Name Dose Route Start Last Admin Trade Name Freq PRN Reason Stop Dose Admin Sodium Chloride 10 ml 11/13/18 09:32 11/13/18 09:36 Saline Flush FLUSH 10 ml ASDIRECTED PRN Administration Keep Vein Open - Re-Assessments/Exams Free Text/Narrative Re-Assessment/Exam: 11/13/18 09:49 I ordered an IV saline lock, labs, UA and a CT of his abdomen and pelvis without IV or oral contrast to look for a kidney stone. 11/13/18 11:06 His WBC was elevated at 11.26. His anion gap was elevated at 19.1. His glucose is 128. His UA shows no UTI or blood. The CT of his abdomen and pelvis shows mild inflammatory change adjacent to the descending colon. No diverticuli are seen in this area and findings are most likely due to so-called epiploic appendagitis. Diffuse fatty infiltration throughout the liver. No renal calculi, ureteral dilatation or ureteral stone is seen. Other findings which are felt to be incidental with no other acute abnormality being seen. Departure - Departure Time of Disposition: 11:15 Disposition: Home, Self-Care 01 Condition: Good Clinical Impression: Epiploic appendagitis - Discharge Information *PRESCRIPTION DRUG MONITORING PROGRAM REVIEWED*: No *COPY OF PRESCRIPTION DRUG MONITORING REPORT IN PATIENT BRADLEY: No Prescriptions: Hydrocodone/Acetaminophen [Hydrocodon-Acetaminophen 5-325] 1 - 2 each PO Q6HR PRN #10 tablet PRN Reason: Pain Referrals: Rocio Zambrano MD [Primary Care Provider] - 1 Week Forms: ED Department Discharge Additional Instructions: Drink plenty of water. Take tylenol or motrin for any pain. If that does not help take some hydrocodone. Please return if you are worse. - My Orders Last 24 Hours: My Active Orders 11/13/18 09:32 Sodium Chloride 0.9% [Saline Flush] 10 ml FLUSH ASDIRECTED PRN Peripheral IV Insertion Adult [OM.PC] Stat 11/13/18 09:33 Peripheral IV Care [RC] . DIRECTED - Assessment/Plan Last 24 Hours: My Active Orders 11/13/18 09:32 Sodium Chloride 0.9% [Saline Flush] 10 ml FLUSH ASDIRECTED PRN Peripheral IV Insertion Adult [OM.PC] Stat 11/13/18 09:33 Peripheral IV Care [RC] . DIRECTED
--- NOTE | 2018-11-13 10:37 | CT ---
CT abdomen and pelvis Technique: Multiple axial sections were obtained from above the dome of the diaphragm inferiorly through the pubic symphysis. Intravenous and oral contrast not utilized. Study has been performed as a ureteral stone protocol. Comparison: No prior abdominal imaging is available. Findings: Kidneys show no abnormal calcifications. No ureteral dilatation or ureteral stone is appreciated. Small portion of the visualized lung bases show nothing acute. Diffuse fatty infiltration is seen throughout the liver. No focal abnormality is identified within the liver. Gallbladder contains no calcified gallstones. Spleen appears within normal limits. Adrenal glands show no nodule. Pancreas is within normal limits. Aorta shows no aneurysm. No retroperitoneal adenopathy is seen. Very minimal atherosclerotic calcification noted within the iliac vessels. Appendix is seen and is normal in size. No pelvic mass or adenopathy is identified. Slight inflammatory change is seen along the anterior aspect of the descending colon. No diverticuli are seen in this region and findings most likely represent so-called epiploic appendagitis. No other inflammatory change is seen. No free fluid is identified. Bone window settings were reviewed which shows disc space narrowing at L1-2 with limbus vertebra seen within the anterior and superior endplate of L2. No acute osseous abnormality is seen. Impression: 1. Mild inflammatory change adjacent to the descending colon. As mentioned above, no diverticuli are seen in this area and findings are most likely due to so-called epiploic appendagitis. 2. Diffuse fatty infiltration throughout the liver. 3. No renal calculi, ureteral dilatation or ureteral stone is seen. 4. Other findings as noted above which are felt to be incidental with no other acute abnormality being seen. Diagnostic code #3
== END 2018-11-13 11:29 | disposition home or self-care (01) ==
LOC: JD.ED 08:53
DX: K63.89 Other specified diseases of intestine (principal); I10 Essential (primary) hypertension; M10.9 Gout, unspecified; F41.9 Anxiety disorder, unspecified; Z88.0 Allergy status to penicillin; Z88.8 Allergy status to other drugs, medicaments and biological substances; Z79.899 Other long term (current) drug therapy
CPT/HCPCS: 36415; 74176; 74176-26; 80053; 81001; 83690; 85025; 99284-25

== ENCOUNTER 2018-12-28 01:54 | Emergency (ER) | payer OTHER, BC ==
[2018-12-28 02:10] VITALS: BP 158/97; PULSE 94
--- NOTE | 2018-12-28 02:22 | EDM.PDOC ---
ED HPI GENERAL MEDICAL PROBLEM - General Chief Complaint: Upper Extremity Injury/Pain Stated Complaint: wrist injury Time Seen by Provider: 12/28/18 02:08 Source of Information: Reports: Patient History Limitations: Reports: No Limitations - History of Present Illness INITIAL COMMENTS - FREE TEXT/NARRATIVE: Mr. Kapoor is a very pleasant 38-year-old man who states that he somehow injured his right wrist about 3 weeks ago, when he was pulling pork. He states that he was holding forks in either hand, pulling them apart as he was pulling the pork, when he developed pain. He states that he has been wearing a Velcro wrist brace for about 2-1/2 weeks. He states that he has been seen at the [facility] clinic a total of 4 times, beginning about 2 weeks ago, and that 3 of the 4 times he was given a shot of Toradol, but that no x-rays or other tests have been done. The plan for him is to go to physical therapy, but there is no plan for him to see an Orthopedic Surgeon. The patient now presents to the ED stating that he felt a pop and developed increased pain to his right wrist when he picked up a pillow with his right hand. He states that he was wearing the wrist brace at the time. In addition to right wrist pain, the patient also reports tingling to his right third and fourth fingers, along with swelling over his distal ulna, all of which are new tonight. The patient states that he injured his right wrist when he slipped and fell, hyperextending his wrist, in 2013, however, it was not found to be broken. The patient states that he has been taking ibuprofen, up to 800 mg TID, with the last dose around 19:30 last night. He states that he also alternates with Tylenol. The patient's PCP is at the [facility]. Right Wrist Pain Score (Numeric/FACES): 10 - Related Data Allergies Allergy/AdvReac Type Severity Reaction Status Date / Time lisinopril Allergy Cough Verified 12/28/18 02:10 meloxicam Allergy Dizziness Verified 12/28/18 02:10 Penicillins Allergy Rash Verified 12/28/18 02:10 Home Meds: Home Meds Allopurinol [Zyloprim] 300 mg PO DAILY 08/28/16 [History] Cetirizine [ZyrTEC] 10 mg PO DAILY PRN 05/10/17 [History] Cholecalciferol (Vitamin D3) [Vitamin D3] 2,000 unit PO DAILY 01/20/18 [History] Citalopram Hydrobromide [Celexa] 20 mg PO DAILY 01/20/18 [History] LORazepam [Ativan] 0.5 mg PO Q6H PRN 01/20/18 [History] Losartan [Cozaar] 25 mg PO DAILY 01/20/18 [History] Fluticasone Propionate [Flonase Allergy Relief] 1 spray [place] DAILY 11/13/18 [ History] Hydrocodone/Acetaminophen [Hydrocodon-Acetaminophen 5-325] 1 - 2 each PO Q6HR PRN #10 tablet 11/13/18 [Rx] Pantoprazole Sodium [Protonix] 40 mg PO QAM 11/13/18 [History] Past Medical History HEENT History: Reports: Allergic Rhinitis, Impaired Vision Other HEENT History: wears glasses Cardiovascular History: Reports: High Cholesterol, Hypertension Respiratory History: Reports: Sleep Apnea (nightly AutoPAP) Gastrointestinal History: Reports: GERD Musculoskeletal History: Reports: Back Pain, Chronic, Fracture (2 fingers), Gout (aspiration-confirmed) Psychiatric History: Reports: PTSD Endocrine/Metabolic History: Reports: Obesity/BMI 30+, Vitamin D Deficiency - Infectious Disease History Infectious Disease History: Reports: Chicken Pox - Past Surgical History Musculoskeletal Surgical History: Reports: Other (See Below) (Left wrist repair. 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 ED EXAM, GENERAL - Physical Exam Exam: See Below Exam Limited By: No Limitations General Appearance: Alert, WD/WN, No Apparent Distress Extremities: Other (Mild non-focal swelling about the right wrist when compared to the left. The patient reports tenderness to palpation virtually any site of the wrist, particularly in a medial distal ulna and the lateral distal radius. The patient reports a lump to the medial distal ulna, which is palpable but soft , not suggestive of a ganglion cyst. The patient reports some decreased sensation to his right fingers #3 and 4, otherwise, the neurovascular status of his right upper extremity appears to be intact and equal to his left upper extremity.) Course - Vital Signs Last Recorded V/S: Last Vital Signs Temp 36.9 C 12/28/18 02:08 Pulse 94 12/28/18 02:08 Resp 16 12/28/18 02:08 BP 158/97 H 12/28/18 02:08 Pulse Ox 97 12/28/18 02:08 - Orders/Labs/Meds Meds: Medications Discontinued Medications Generic Name Dose Route Start Last Admin Trade Name Vishal PRN Reason Stop Dose Admin Ketorolac Tromethamine 60 mg 12/28/18 03:47 12/28/18 03:55 Toradol IM 12/28/18 03:48 60 mg ONETIME ONE Administration - Re-Assessments/Exams Free Text/Narrative Re-Assessment/Exam: 12/28/18 02:21 With no significant injury to the wrist, I doubt that we are looking at any fractures, however, I ordered x-rays of the right wrist to evaluate for a dislocation. 12/28/18 03:44 4-view radiographs of the right wrist appear to be normal. No fractures or dislocations seen. Formal read per the Radiologist pending. 12/28/18 03:54 X-ray results discussed with the patient. The patient tells me that while waiting for his results, he pulled on his fingers, his wrist popped, and is now feeling considerably better. It is still sore, but better than it was. Going forward, I'm recommending that the patient continue to wear his wrist brace, and make an appointment to see Dr. Cabezas at the next available appointment - it is my understanding that Dr. Cabezas will be back on 01/03/2019. If the patient's wrist is all better before then, the patient can cancel his appointment. Departure - Departure Time of Disposition: 03:55 Disposition: Home, Self-Care 01 Condition: Good Clinical Impression: Right wrist sprain - Discharge Information *PRESCRIPTION DRUG MONITORING PROGRAM REVIEWED*: Not Applicable *COPY OF PRESCRIPTION DRUG MONITORING REPORT IN PATIENT [facility]: Not Applicable Instructions: Wrist Sprain, Adult Referrals: Seth Cabezas MD [Physician] - Forms: ED Department Discharge Additional Instructions: You were seen in the emergency room for 3 weeks of right wrist pain. Workup in the ER included x-rays of the right wrist, which returned unremarkable. No fractures or dislocations were seen. Based on your history and physical examination, you have most likely sprained your wrist. We recommend that you continue to wear your wrist brace as much as possible, removing it only for bathing. We recommend that you take [id number] ibuprofen, 3-4 tablets (600-800 mg) every 8 hours, with food, however, we advise that you DO NOT also take Tylenol, as the combination of ibuprofen and Tylenol can increase the risk of Tylenol toxicity. We recommend that you contact the office of the Orthopedic Surgeon Dr. Seth Cabezas to make an appointment to be seen when he returns. If your wrist pain resolves before your appointment, you can cancel the appointment. If any other problems, please do not hesitate to return to the ER.
[2018-12-28] MEDS ORDERED: Ketorolac 60 MG/2 ML SDV IM ONE (03:47)
--- NOTE | 2018-12-28 08:24 | CR ---
Right wrist: Four views of the right wrist were obtained. Comparison: No prior wrist exam. Joint spaces are preserved. No fracture, dislocation or other bony abnormality is seen. Impression: 1. No abnormality is appreciated on right wrist exam. Diagnostic code #1
== END 2018-12-28 04:11 | disposition home or self-care (01) ==
LOC: JD.ED 01:54
DX: S63.501A Unspecified sprain of right wrist, initial encounter (principal); I10 Essential (primary) hypertension; E78.00 Pure hypercholesterolemia, unspecified; K21.9 Gastro-esophageal reflux disease without esophagitis; E66.9 Obesity, unspecified; Z68.43 Body mass index [BMI] 50.0-59.9, adult; Z88.8 Allergy status to other drugs, medicaments and biological substances; Z88.0 Allergy status to penicillin; Z79.899 Other long term (current) drug therapy; X50.0XXA Overexertion from strenuous movement or load, initial encounter
CPT/HCPCS: 73110; 96372; 99283; J1885

== ENCOUNTER 2019-05-12 13:17 | Emergency (ER) | payer OTHER, BC ==
[2019-05-12 13:32] VITALS: BP 166/95; PULSE 87
[2019-05-12] MEDS ORDERED: Aspirin 81 MG Tab.Chew PO ONE (13:46)
--- NOTE | 2019-05-12 13:53 | EDM.PDOC ---
ED HPI GENERAL MEDICAL PROBLEM - General Chief Complaint: Chest Pain Stated Complaint: CHEST PAIN Time Seen by Provider: 05/12/19 13:35 Source of Information: Reports: Patient History Limitations: Reports: No Limitations - History of Present Illness INITIAL COMMENTS - FREE TEXT/NARRATIVE: 38-year-old male presents to the ED with central chest pressure discomfort. He states he was seated eating a salad for dinner when he developed a central chest discomfort. He has a history of high blood pressure, he has a history of hypercholesterolemia and type 2 diabetes. Recently started on medication for both the high cholesterol and the diabetes. He has no odynophagia. No feeling of need to burp or belch. He has no known coronary artery disease. He is a never smoker. He is still trying to quit drinking alcohol drinking more socially now instead of a quart of whiskey daily. Pain started right about 1200 hrs. today and has not gone away. Initial ECG done by the triage nurse shows sinus rhythm at 87/min with no signs of ischemia. There is T wave inversion V3 to V6 however and also in the inferior leads which could mean ischemia. Onset: Today Onset Date: 05/12/19 Onset Time: 12:00 Duration: Minutes:, Constant. 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) Middle Chest Pain Score (Numeric/FACES): 1 - Related Data Allergies Allergy/AdvReac Type Severity Reaction Status Date / Time Penicillins Allergy Rash Verified 12/28/18 02:10 lisinopril AdvReac Cough Verified 05/12/19 15:02 meloxicam AdvReac Dizziness Verified 05/12/19 15:02 Home Meds: Home Meds Allopurinol [Zyloprim] 300 mg PO DAILY 08/28/16 [History] Cetirizine [ZyrTEC] 10 mg PO DAILY PRN 05/10/17 [History] Cholecalciferol (Vitamin D3) [Vitamin D3] 2,000 unit PO DAILY 01/20/18 [History] Citalopram Hydrobromide [Celexa] 20 mg PO DAILY 01/20/18 [History] LORazepam [Ativan] 0.5 mg PO Q6H PRN 01/20/18 [History] Losartan [Cozaar] 100 mg PO DAILY 01/20/18 [History] Fluticasone Propionate [Flonase Allergy Relief] 1 spray [place] DAILY 11/13/18 [ History] Pantoprazole Sodium [Protonix] 40 mg PO QAM 11/13/18 [History] Simvastatin 0 mg PO DAILY 05/12/19 [History] metFORMIN [Glucophage XR] 1,000 mg PO DAILY 05/12/19 [History] Past Medical History HEENT History: Reports: Allergic Rhinitis, Impaired Vision Other HEENT History: wears glasses Cardiovascular History: Reports: High Cholesterol, Hypertension Respiratory History: Reports: Sleep Apnea Other Respiratory History: CPAP at night Gastrointestinal History: Reports: GERD Other Gastrointestinal History: fatty liver Genitourinary History: Reports: None 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 Musculoskeletal History: Reports: Back Pain, Chronic, Fracture, Gout Other Musculoskeletal History: back injury, left wrist injury, right ankle injury, right ankle reconstruciton, left wrist reconstruction Neurological History: Reports: Migraines Psychiatric History: Reports: PTSD Endocrine/Metabolic History: Reports: Obesity/BMI 30+, Vitamin D Deficiency Other Endocrine/Metabolic History: low testosterone Hematologic History: Reports: None, Other (See Below) Other Hematologic History: hypocalcemia Immunologic History: Reports: None Oncologic (Cancer) History: Reports: None Dermatologic History: Reports: None - Infectious Disease History Infectious Disease History: Reports: Chicken Pox - Past Surgical History Head Surgeries/Procedures: Reports: None Male Surgical History: Reports: None Neurological Surgical History: Reports: None Musculoskeletal Surgical History: Reports: Other (See Below) Oncologic Surgical History: Reports: None Dermatological Surgical History: Reports: None Social & Family History - Family History Family Medical History: Noncontributory - Caffeine Use Caffeine Use: Reports: Coffee, Soda - Living Situation & Occupation Living situation: Reports: , with Family (2 kids) 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 Denies: Fever, Chills, Malaise, Weakness, Weight Loss HEENT: Reports: No Symptoms Respiratory: Reports: No Symptoms Cardiovascular: Reports: Chest Pain, Blood Pressure Problem (History of present illness). Denies: Claudication, Dyspnea on Exertion, Edema, Lightheadedness ( Recently started on meds for blood pressure), Orthopnea Endocrine: Reports: Fatigue GI/Abdominal: Reports: No Symptoms : Reports: Frequency Musculoskeletal: Reports: Back Pain Skin: Reports: No Symptoms Neurological: Reports: No Symptoms Psychiatric: Reports: Anxiety (He is on citalopram daily and does use lorazepam on a as needed basis.) Hematologic/Lymphatic: Reports: No Symptoms Immunologic: Reports: No Symptoms ED EXAM, GENERAL - Physical Exam Exam: See Below Exam Limited By: No Limitations General Appearance: Alert, WD/WN, Anxious, Mild Distress, Other (She was 37.3 pulse of 87 respiratory of 23 with O2 sats of 97 BP was elevated at 166/95.) Eye Exam: Bilateral Eye: Normal Inspection Throat/Mouth: Normal Inspection, Normal Lips, Normal Oropharynx Head: Atraumatic, Normocephalic Neck: Normal Inspection, Supple, Non-Tender, Full Range of Motion. No: Lymphadenopathy (L), Lymphadenopathy (R) Respiratory/Chest: No Respiratory Distress, Lungs Clear, Normal Breath Sounds, Chest Non-Tender Cardiovascular: Normal Peripheral Pulses, Regular Rate, Rhythm, No Edema, No Gallop, No Murmur, No Rub Peripheral Pulses: 2+: Posterior Tibial (L), Posterior Tibial (R), Dorsalis Pedis (L), Dorsalis Pedis (R), 3+: Carotid (L), Carotid (R) GI/Abdominal: Normal Bowel Sounds, Soft, Non-Tender, No Organomegaly, No Abnormal Bruit, No Mass, Pelvis Stable, Other (Abdominal girth limits ability to palpate solid organs.) (Male) Exam: No Hernia Back Exam: Normal Inspection, Full Range of Motion. No: CVA Tenderness (L), CVA Tenderness (R) Extremities: Normal Inspection, Normal Range of Motion, Non-Tender. No: Pedal Edema Neurological: Alert, Oriented, CN II-XII Intact, Normal Cognition, No Motor/ Sensory Deficits Psychiatric: Normal Affect, Normal Mood (He does not appear anxious at this time.) Skin Exam: Warm, Dry, Intact, Normal Color, No Rash EKG INTERPRETATION EKG Date: 05/12/19 Time: 13:29 Rhythm: NSR Rate (Beats/Min): 87 [place]: LAD-Left [place] Deviation (Is 9 degrees) P-Wave: Present QRS: Other (Is mildly decreased voltage in the precordial leads.) ST-T: Other (T wave inversion in leads II, III, aVF and V3 to-V6 leads. Cannot rule out inferior inferior apical ischemia) QT: Prolonged (Mildly prolonged) EKG Interpretation Comments: [place] ECG Course - Vital Signs Last Recorded V/S: Last Vital Signs Temp 37.3 C 05/12/19 13:31 Pulse 87 05/12/19 13:31 Resp 23 H 05/12/19 13:31 BP 166/95 H 05/12/19 13:31 Pulse Ox 97 05/12/19 13:31 - Orders/Labs/Meds Orders: Active Orders 24 hr Category Date Time Status EKG Documentation Completion [RC] STAT Care 05/12/19 15:50 Active PRO B-TYPE NATRIUR PEPT,BNPPRO [CHEM] Stat Lab 05/12/19 13:55 Received Nitroglycerin/D5W [Nitroglycerin 25 MG/D5W 250 ML] Med 05/12/19 14:00 Active 25 mg in 250 ml IV TITRATE Sodium Chloride 0.9% [Normal Saline] 1,000 ml Med 05/12/19 15:15 Active IV ASDIRECTED Medication Orders Nitroglycerin/Dextrose (Nitroglycerin 25 Mg/D5w 250 Ml) 25 mg in 250 mls @ 6 mls/hr IV TITRATE WOJCIECH; Protocol Last Admin: 05/12/19 13:59 Dose: 10 mcg/min, 6 mls/hr Sodium Chloride (Normal Saline) 1,000 mls @ 999 mls/hr IV ASDIRECTED WOJCIECH Last Admin: 05/12/19 15:40 Dose: 999 mls/hr Labs: Laboratory Tests 05/12/19 05/12/19 05/12/19 Range/Units 13:55 13:55 13:55 WBC 9.59 H (4.23-9.07) K/mm3 RBC 4.69 (4.63-6.08) M/mm3 Hgb 15.1 (13.7-17.5) gm/dl Hct 43.4 (40.1-51.0) % MCV 92.5 H (79.0-92.2) fl MCH 32.2 (25.7-32.2) pg MCHC 34.8 (32.2-35.5) g/dl RDW Std Deviation 43.7 (35.1-43.9) fL Plt Count 244 (163-337) K/mm3 MPV 9.4 (9.4-12.3) fl Neut % (Auto) 66.7 (34.0-67.9) % Lymph % (Auto) 23.3 (21.8-53.1) % [place] % (Auto) 8.2 (5.3-12.2) % Eos % (Auto) 1.3 (0.8-7.0) Baso % (Auto) 0.2 (0.1-1.2) % Neut # (Auto) 6.40 H (1.78-5.38) K/mm3 Lymph # (Auto) 2.23 (1.32-3.57) K/mm3 [place] # (Auto) 0.79 (0.30-0.82) K/mm3 Eos # (Auto) 0.12 (0.04-0.54) K/mm3 Baso # (Auto) 0.02 (0.01-0.08) K/mm3 PT 11.4 (9.7-12.0) SECONDS INR 1.05 APTT (22-31) SECONDS D-Dimer, Quantitative (0.19-0.50) mg/L Sodium 144 (136-145) mEq/L Potassium 3.6 (3.5-5.1) mEq/L Chloride 106 (98-107) mEq/L Carbon Dioxide 22 (21-32) mEq/L Anion Gap 19.6 H (5-15) BUN 13 (7-18) mg/dL Creatinine 0.9 (0.7-1.3) mg/dL Est Cr Clr Drug Dosing 106.61 mL/min Estimated GFR (MDRD) > 60 (>60) mL/min BUN/Creatinine Ratio 14.4 (14-18) Glucose 104 (74-106) mg/dL Calcium 9.7 (8.5-10.1) mg/dL Magnesium 1.5 L (1.8-2.4) mg/dl Total Bilirubin 0.8 (0.2-1.0) mg/dL AST 50 H (15-37) U/L ALT 117 H (16-63) U/L Alkaline Phosphatase 42 L (46-116) U/L CK-MB (CK-2) 1.8 (0-3.6) ng/ml Troponin I < 0.017 (0.00-0.056) ng/mL C-Reactive Protein 0.6 (<1.0) mg/dL Total Protein 7.7 (6.4-8.2) g/dl Albumin 4.0 (3.4-5.0) g/dl Globulin 3.7 gm/dL Albumin/Globulin Ratio 1.1 (1-2) 05/12/19 05/12/19 05/12/19 Range/Units 13:55 13:55 16:15 WBC (4.23-9.07) K/mm3 RBC (4.63-6.08) M/mm3 Hgb (13.7-17.5) gm/dl Hct (40.1-51.0) % MCV (79.0-92.2) fl MCH (25.7-32.2) pg MCHC (32.2-35.5) g/dl RDW Std Deviation (35.1-43.9) fL Plt Count (163-337) K/mm3 MPV (9.4-12.3) fl Neut % (Auto) (34.0-67.9) % Lymph % (Auto) (21.8-53.1) % [place] % (Auto) (5.3-12.2) % Eos % (Auto) (0.8-7.0) Baso % (Auto) (0.1-1.2) % Neut # (Auto) (1.78-5.38) K/mm3 Lymph # (Auto) (1.32-3.57) K/mm3 [place] # (Auto) (0.30-0.82) K/mm3 Eos # (Auto) (0.04-0.54) K/mm3 Baso # (Auto) (0.01-0.08) K/mm3 PT (9.7-12.0) SECONDS INR APTT 24 (22-31) SECONDS D-Dimer, Quantitative < 0.19 L (0.19-0.50) mg/L Sodium (136-145) mEq/L Potassium (3.5-5.1) mEq/L Chloride (98-107) mEq/L Carbon Dioxide (21-32) mEq/L Anion Gap (5-15) BUN (7-18) mg/dL Creatinine (0.7-1.3) mg/dL Est Cr Clr Drug Dosing mL/min Estimated GFR (MDRD) (>60) mL/min BUN/Creatinine Ratio (14-18) Glucose (74-106) mg/dL Calcium (8.5-10.1) mg/dL Magnesium (1.8-2.4) mg/dl Total Bilirubin (0.2-1.0) mg/dL AST (15-37) U/L ALT (16-63) U/L Alkaline Phosphatase (46-116) U/L CK-MB (CK-2) 1.8 (0-3.6) ng/ml Troponin I < 0.017 (0.00-0.056) ng/mL C-Reactive Protein (<1.0) mg/dL Total Protein (6.4-8.2) g/dl Albumin (3.4-5.0) g/dl Globulin gm/dL Albumin/Globulin Ratio (1-2) Meds: Medications Generic Name Dose Route Start Last Admin Trade Name Freq PRN Reason Stop Dose Admin Nitroglycerin/Dextrose 25 mg in 250 mls @ 6 mls/hr 05/12/19 14:00 05/12/19 13 :59 Nitroglycerin 25 Mg/D5w 250 Ml IV 10 mcg/min TITRATE WOJCIECH 6 mls/hr Administration Protocol 10 MCG/MIN Sodium Chloride 1,000 mls @ 999 mls/hr 05/12/19 15:15 05/12/19 15:40 Normal Saline IV 999 mls/hr ASDIRECTED WOJCIECH Administration Discontinued Medications Generic Name Dose Route Start Last Admin Trade Name Freq PRN Reason Stop Dose Admin Aspirin 324 mg 05/12/19 13:46 Aspirin PO 05/12/19 13:47 ONETIME ONE Sodium Chloride 1,000 mls @ 100 mls/hr 05/12/19 14:00 05/12/19 14:00 Normal Saline IV 100 mls/hr ASDIRECTED WOJCIECH Administration Magnesium Sulfate 2 gm/ Premix 50 mls @ 25 mls/hr 05/12/19 15:15 05/12/19 15: 29 IV 05/12/19 17:14 25 mls/hr Q1H WOJCIECH Administration - Radiology Interpretation Free Text/Narrative:: 38-year-old male presents to the ED with central chest pressure discomfort that started about 1200 hrs. today while he was eating a salad. Patient has been recently diagnosed with metabolic syndrome being very obese. He has hypertension and recently started on medications for both high blood pressure and high cholesterol. He is also developed type 2 diabetes and is started on metformin. He is a never smoker. He is a heavy alcohol user he was drinking up to a quart of whiskey daily but is down to social drinking at this time. Has heartburn or indigestion sensation. Lamination is completely normal. Plan he will be treated like he is an NC until we know for sure. Initial ECG shows T wave inversion in multiple leads which could mean ischemia. And aspirin 324 mg chewed. He will be started nitroglycerin drip at 10 mics per minute. - Re-Assessments/Exams Free Text/Narrative Re-Assessment/Exam: 05/12/19 14:22 Patient reports he is currently completely chest pain-free. This occurred gradually even before the nitroglycerin was started. Chest x-ray done portably is within normal limits. 05/12/19 15:01 Is revealing normal white count at 9.59. The differential shows 67% neutrophils. Hemoglobin is 15.1 with hematocrit of 43.4. Platelet counts 244,000. PT is 11.4 with an INR of 1.05. PTT is 24 d-dimer is less than 0.19. Chemistry shows a sodium of 144 potassium is 3.6 chloride 106 bicarb 22. Anion gap is markedly elevated at 19.6. BUN is 13 with a creatinine of 0.9. Estimated GFR is 60. Glucose 104 with a calcium of 9.7 magnesium slightly low at 1.5. Bilirubin is 0.8 AST is 50 with an ALT of 117 CK-MB fraction 1.8 and troponin I is initially less than 0.017. C-reactive protein is 0.6 with a total protein of 7.7 and albumin fraction of 4.0. He remains pain-free. Plan I am going to open his normal saline to fall and plan on giving him 2 L of IV fluids to correct his metabolic acidosis. This is a combination of ketosis as he is trying to lose weight and also some alcohol induced lactic acidosis. I will also hang magnesium 2 g IV over the next hour he will be for repeat iliac markers at 1600 hrs. 05/12/19 17:15:The cardiac markers revealed a CK-MB fraction to be exactly the same at 1.8 and a troponin exactly the same at less than 0.017. Patient was reassured about the findings that his chest pain was not cardiac in origin. I suspect he was esophageal spasm that gave him some retrosternal chest pressure discomfort as he still drinks a fair amount of alcohol and likely is refluxing it nighttime due to his body habitus. Suggested Pepcid 20 mg at bedtime to try and prevent a similar occurrence. Follow-up if similar problems continue. Departure - Departure Time of Disposition: 17:13 Disposition: Home, Self-Care 01 Reason for Transfer *Q: Other Condition: Fair Clinical Impression: Non-cardiac chest pain Instructions: Chest Wall Pain Referrals: Rocio Zambrano MD [Primary Care Provider] - Forms: ED Department Discharge Additional Instructions: Patient in the emergency room today in regards to development of central chest pain while eating salad for dinner at about 1200 hrs. today. Pressure discomfort lasted until you came to the ED when it started to slowly resolve and then seem to completely resolve after he was started on nitroglycerin medication. Nitro can also relax the muscles in the wall of the esophagus or food pipe and relieve pain. Cardiac work-up revealed no signs of any heart related illness. ECG was normal and cardiac markers x2 were 0. Current chest pain today it was not related to your heart and I suspect that it was due to a spasm of your food pipe which lives right behind your heart and in the center of her chest and often will cause some chest discomfort even up into our throat. The most likely cause of this is reflux of acid during the night when you are sleeping and causing an irritation of the lower food pipe for the next several days. One bad night of reflux can make the food pipe irritated 10 days. Therefore I would suggest purchasing Pepcid 20 mg and taking it every night at bedtime. When you drink alcohol you are more likely to reflux that night. Time continue all rate medications as you have before. You have no restrictions in terms of activity or diet. Would avoid soda pop because of the extra air in the soda pop which does travel up the food pipe and could cause more spasm. Also highly spicy foods might irritate the food pipe in the next few days. Sepsis Event Note - Evaluation Sepsis Screening Result: No Definite Risk - Focused Exam Vital Signs: Vital Signs Temp Pulse Resp BP Pulse Ox 05/12/19 13:31 37.3 C 87 23 H 166/95 H 97 Date Exam was Performed: 05/12/19 Time Exam was Performed: 17:37 - My Orders Last 24 Hours: My Active Orders 05/12/19 13:55 PRO B-TYPE NATRIUR PEPT,BNPPRO [CHEM] Stat 05/12/19 14:00 Nitroglycerin/D5W [Nitroglycerin 25 MG/D5W 250 ML] 25 mg in 250 ml IV TITRATE 05/12/19 15:15 Sodium Chloride 0.9% [Normal Saline] 1,000 ml IV ASDIRECTED 05/12/19 15:50 EKG Documentation Completion [RC] STAT - Assessment/Plan Last 24 Hours: My Active Orders 05/12/19 13:55 PRO B-TYPE NATRIUR PEPT,BNPPRO [CHEM] Stat 05/12/19 14:00 Nitroglycerin/D5W [Nitroglycerin 25 MG/D5W 250 ML] 25 mg in 250 ml IV TITRATE 05/12/19 15:15 Sodium Chloride 0.9% [Normal Saline] 1,000 ml IV ASDIRECTED 05/12/19 15:50 EKG Documentation Completion [RC] STAT
[2019-05-12] MEDS ORDERED: Nitroglycerin/D5W 25 MG/250 ML BOTTLE IV SCH (14:00)
[2019-05-12] MEDS ORDERED: Sodium Chloride 0.9% 1,000 ML IV SCH ×2 (14:00→15:15)
--- NOTE | 2019-05-12 14:50 | CR ---
Chest: Portable view of the chest was obtained. Comparison: No prior chest imaging. Heart size and mediastinum are normal. Lungs are clear with no acute parenchymal change. Bony structures are grossly intact. Impression: 1. Nothing acute is seen on portable chest x-ray. Diagnostic code #1 This report was dictated in [place] Standard Time
[2019-05-12] MEDS ORDERED: Magnesium Sulfate/Water 2 GM in Premix Bag 1 BAG IV SCH (15:15)
== END 2019-05-12 17:29 | disposition home or self-care (01) ==
LOC: JD.ED 13:17
DX: R07.89 Other chest pain (principal); E78.00 Pure hypercholesterolemia, unspecified; I10 Essential (primary) hypertension; K21.9 Gastro-esophageal reflux disease without esophagitis; E11.9 Type 2 diabetes mellitus without complications; Z79.84 Long term (current) use of oral hypoglycemic drugs; E66.9 Obesity, unspecified; Z68.42 Body mass index [BMI] 45.0-49.9, adult; Z88.0 Allergy status to penicillin; Z88.8 Allergy status to other drugs, medicaments and biological substances; Z79.899 Other long term (current) drug therapy
CPT/HCPCS: 36415; 71045; 80053; 82553; 83735; 83880; 84484; 85025; 85379; 85610; 85730; 86140; 93005; 96361; 96365; 99285; J3475; J3490; J7030; 93010; 99284